=== PATIENT | male | born 2000 | race Caucasian/White ===

== ENCOUNTER 2018-10-29 12:50 | Emergency (ER) | payer SELFPAY ==
--- NOTE | 2018-10-29 13:51 | ER Document Report ---
ED Medical Screen (RME) - General Chief Complaint: Chest Pain Stated Complaint: CHEST PAIN Time Seen by Provider: 10/29/18 13:45 TRAVEL OUTSIDE OF THE [place] IN LAST 30 DAYS: No - HPI Notes: 10/29/18 13:49 Patient is a 17-year-old male with a history of tachycardia, mild cardiomyopathy with ejection fraction 55-60% who presents the emergency department complaining of substernal chest pain that radiates to his left arm that began this morning. Patient does take a beta-dante. He does report a dry cough over the past several days as well. Denies any prolonged immobilization, distance travel, recent surgery/trauma, personal cancer history, hormone use, smoking, or previous DVT/PE. Denies WOOTEN, fever, neck pain, Abd pain, or rash. I have treated and performed a rapid initial assessment of this patient. A comprehensive ED assessment and evaluation of the patient, analysis of test results and completion of medical decision making process will be conducted by additional ED providers. PHYSICAL EXAMINATION: GENERAL: Well-appearing, well-nourished and in no acute distress. A&Ox4. Answers questions appropriately. LUNGS: Breath sounds clear to auscultation bilaterally and equal. No wheezes rales or rhonchi. HEART: Regular rate and rhythm without murmurs, rubs, gallops. Extremities: No cyanosis, clubbing, or edema b/l. No lower extremity asymmetry. Chevy negative bilaterally. NEUROLOGICAL: Normal speech, normal gait. PSYCH: Normal mood, normal affect. - Related Data Allergies/Adverse Reactions: IV dye Allergy (Uncoded 10/29/18 12:52) Physical Exam - Vital signs Vitals: Temp Pulse Resp BP Pulse Ox 98.1 F 104 H 16 151/86 H 97 10/29/18 13:04 10/29/18 13:04 10/29/18 13:04 10/29/18 13:04 10/29/18 13:04 Course - Vital Signs Vital signs: Temp Pulse Resp BP Pulse Ox 98.1 F 104 H 16 151/86 H 97 10/29/18 13:04 10/29/18 13:04 10/29/18 13:04 10/29/18 13:04 10/29/18 13:04
[2018-10-29] MEDS ORDERED: PROPRANOLOL HCL 10 MG TABLET PO ONE (13:56)
[2018-10-29 14:29] LABS: ABSOLUTE EOSINOPHILS # (AUTO) 0.1 10^3/uL (0.0-0.6); ABSOLUTE LYMPHOCYTES (AUTO) 1.8 10^3/uL (0.5-4.7); ABSOLUTE MONOCYTES (AUTO) 0.8 10^3/uL (0.1-1.4); ABSOLUTE NEUT (AUTO) 4.6 10^3/uL (1.7-8.2); BASOPHILS % (AUTO) 0.6 % (0-2); HEMATOCRIT 44.5 % (37.9-51.0); HEMOGLOBIN 15.6 g/dL (13.5-17.0); LYMPHOCYTES % (AUTO) 24.2 % (13-45); MEAN CORPUSCULAR HEMOGLOBIN 28.7 pg (27.0-33.4); MEAN CORPUSCULAR VOLUME 82 fl (80-97); MONOCYTES % (AUTO) 10.5 % (3-13); PLATELET COUNT 262 10^3/uL (150-450); RED BLOOD COUNT 5.44 10^6/uL (4.35-5.55); RED CELL DISTRIBUTION WIDTH 13.5 % (11.5-14.0); SEGMENTED NEUTROPHILS % (AUTO) 63.7 % (42-78); TOTAL CELLS COUNTED % (AUTO) 100 %; WHITE BLOOD COUNT 7.3 10^3/uL (4.0-10.5)
[2018-10-29 14:39] LABS: ALANINE AMINOTRANSFERASE 50 U/L (10-40); ALBUMIN 4.2 g/dL (3.7-5.6); ALKALINE PHOSPHATASE 76 U/L (65-260); ANION GAP 8 (5-19); ASPARTATE AMINO TRANSFERASE 30 U/L (10-45); BILIRUBIN,DIRECT 0.3 mg/dL (0.0-0.4); BILIRUBIN,TOTAL 0.7 mg/dL (0.2-1.3); BLOOD UREA NITROGEN 13 mg/dL (7-20); CALCIUM 9.6 mg/dL (8.4-10.2); CARBON DIOXIDE 27 mmol/L (22-30); CHLORIDE 106 mmol/L (98-107); GLUCOSE 113 mg/dL (75-110); POTASSIUM 4.1 mmol/L (3.6-5.0); SODIUM 141.2 mmol/L (137-145); TOTAL PROTEIN 7.2 g/dL (6.3-8.2)
[2018-10-29 14:51] LABS: NT PRO BNP 13 pg/mL (<125)
[2018-10-29 15:02] LABS: TROPONIN I < 0.012 ng/mL
[2018-10-29] MEDS ORDERED: NORMAL SALINE 1000 ML 1,000 ML IV ONE (15:21)
[2018-10-29] MEDS ORDERED: CLONAZEPAM 1 MG TABLET PO ONE (15:22)
[2018-10-29] MEDS ORDERED: KETOROLAC TROMETHAMINE INJ/PF 30 MG/1 ML SDV IV ONE (15:23)
--- NOTE | 2018-10-29 15:25 | ER Document Report ---
ED Cardiac - General Chief Complaint: Chest Pain Stated Complaint: CHEST PAIN Time Seen by Provider: 10/29/18 13:45 Mode of Arrival: Ambulatory Information source: Patient Notes: Patient presents stating that he had around 8:00 this morning with palpitations. Patient states he does have a history of tachycardia and typically takes propanolol although he missed a dose today. Patient states that he is here [place]. Patient also reports he had a cough for the past 5 days. Patient does state that he has a history of chronic chest discomfort as well as chronic tachycardia. Patient became concerned today because he felt like the tachycardia was lasting too long. TRAVEL OUTSIDE OF THE [place] IN LAST 30 DAYS: No - HPI Patient complains to provider of: Chest pain, Palpitations. denies: Shortness of breath Is the pain a: Chronic problem Quality of pain: Pressure Pain level currently: 2 Chest pain precipitating factors: Coughing Cardiac risk factors: denies: Smoker Associated symptoms: Anxiety, Palpitations. denies: Abdominal pain, Nausea/vomiting, Shortness of breath Exacerbated by: Coughing Relieved by: Nothing Similar symptoms previously: Yes Recently seen / treated by doctor: No - Related Data Allergies/Adverse Reactions: IV dye Allergy (Uncoded 10/29/18 12:52) Past Medical History - General Information source: Patient - Social History Smoking Status: Never Smoker Frequency of alcohol use: None Drug Abuse: None Lives with: Family Family History: Reviewed & Not Pertinent Patient has suicidal ideation: No Patient has homicidal ideation: No - Past Medical History Cardiac Medical History: Reports: Other - Tachycardia Renal/ Medical History: Denies: Hx Peritoneal Dialysis Psychiatric Medical History: Reports: Hx Anxiety Surgical Hx: Negative Review of Systems - Review of Systems Constitutional: Recent illness - Cough for 5 days EENT: No symptoms reported. denies: Throat pain Cardiovascular: Chest pain, Palpitations Respiratory: Cough. denies: Short of breath Gastrointestinal: No symptoms reported. denies: Abdominal pain, Nausea, Vomiting Genitourinary: No symptoms reported Male Genitourinary: No symptoms reported Musculoskeletal: No symptoms reported. denies: Back pain, Leg swelling Skin: No symptoms reported Hematologic/Lymphatic: No symptoms reported Neurological/Psychological: No symptoms reported Physical Exam - Vital signs Vitals: Temp Pulse Resp BP Pulse Ox 98.1 F 104 H 16 151/86 H 97 10/29/18 13:04 10/29/18 13:04 10/29/18 13:04 10/29/18 13:04 10/29/18 13:04 - General General appearance: Appears well, Alert In distress: None - HEENT Head: Normocephalic, Atraumatic Eyes: Normal Conjunctiva: Normal Nasal: Normal Mouth/Lips: Normal Mucous membranes: Normal Neck: Normal, Supple. No: Lymphadenopathy - Respiratory Respiratory status: No respiratory distress Chest status: Pain with cough Breath sounds: Nonproductive cough. No: Rales, Rhonchi, Stridor, Wheezing Chest palpation: Normal - Cardiovascular Rhythm: Regular Heart sounds: S1 appreciated, S2 appreciated Murmur: No - Abdominal Inspection: Obese Distension: No distension Bowel sounds: Normal Tenderness: Nontender Organomegaly: No organomegaly - Back Back: Normal, Nontender - Extremities General upper extremity: Normal inspection, Nontender, Normal strength General lower extremity: Normal inspection, Nontender, Normal strength. No: Edema - Neurological Neuro grossly intact: Yes Cognition: Normal Hazard Coma Scale Eye Opening: Spontaneous Janay Coma Scale Verbal: Oriented Hazard Coma Scale Motor: Obeys Commands Hazard Coma Scale Total: 15 - Psychological Associated symptoms: Normal affect, Normal mood - Skin Skin Temperature: Warm Skin Moisture: Dry Skin Color: Normal Course - Re-evaluation Re-evalutation: 10/29/18 16:48 Patient's heart rate 99 with oxygen saturation of 100%. Patient states chest pain is improved at this time. Chest x-ray reviewed, no concern for pneumonia. Consulted with Dr. Dawson regarding patient presentation, she advises repeating troponin at this time. 10/29/18 18:00 No rise in delta troponin. Patient denies any dyspnea or palpitation at this time. Heart rate 90. Patient reports chest discomfort is improved at this time. The patient has atypical chest pain as the patient's chest pain is not s uggestive of pulmonary embolus, cardiac ischemia, aortic dissection, or other serious etiology. Given the extremely low risk of these diagnoses for the test in evaluation for these possibilities does not appear to be indicated at this time. Patient has been instructed to return if the symptoms worsen or change in any way. - Vital Signs Vital signs: Temp Pulse Resp BP Pulse Ox 97.2 F 90 16 130/72 H 100 10/29/18 18:21 10/29/18 18:21 10/29/18 18:21 10/29/18 18:21 10/29/18 18:21 - Laboratory Result Diagrams: 10/29/18 14:13 10/29/18 14:13 Laboratory results interpreted by me: 10/29/18 14:13 Glucose 113 H ALT 50 H 10/30/18 01:46 Labs- Entire Visit 10/29/18 10/29/18 10/29/18 14:13 14:13 14:13 WBC 7.3 RBC 5.44 Hgb 15.6 Hct 44.5 MCV 82 MCH 28.7 MCHC 35.0 RDW 13.5 Plt Count 262 Seg Neutrophils % 63.7 Lymphocytes % 24.2 Monocytes % 10.5 Eosinophils % 1.0 Basophils % 0.6 Absolute Neutrophils 4.6 Absolute Lymphocytes 1.8 Absolute Monocytes 0.8 Absolute Eosinophils 0.1 Absolute Basophils 0.0 Sodium 141.2 Potassium 4.1 Chloride 106 Carbon Dioxide 27 Anion Gap 8 BUN 13 Creatinine 1.06 Est GFR ( Amer) > 60 Est GFR (Non-Af Amer) > 60 Glucose 113 H Calcium 9.6 Total Bilirubin 0.7 Direct Bilirubin 0.3 Neonat Total Bilirubin Not Reportable Neonat Direct Bilirubin Not Reportable Neonat Indirect Bili Not Reportable AST 30 ALT 50 H Alkaline Phosphatase 76 Troponin I < 0.012 NT-Pro-B Natriuret Pep 13 Total Protein 7.2 Albumin 4.2 TSH 10/29/18 10/29/18 14:13 17:08 WBC RBC Hgb Hct MCV MCH MCHC RDW Plt Count Seg Neutrophils % Lymphocytes % Monocytes % Eosinophils % Basophils % Absolute Neutrophils Absolute Lymphocytes Absolute Monocytes Absolute Eosinophils Absolute Basophils Sodium Potassium Chloride Carbon Dioxide Anion Gap BUN Creatinine Est GFR ( Amer) Est GFR (Non-Af Amer) Glucose Calcium Total Bilirubin Direct Bilirubin Neonat Total Bilirubin Neonat Direct Bilirubin Neonat Indirect Bili AST ALT Alkaline Phosphatase Troponin I < 0.012 NT-Pro-B Natriuret Pep Total Protein Albumin TSH 2.01 - Diagnostic Test Radiology reviewed: Reports reviewed Discharge - Discharge Clinical Impression: Palpitations Chest pain Qualifiers: Chest pain type: unspecified Qualified Code(s): R07.9 - Chest pain, unspecified Condition: Stable Disposition: HOME, SELF-CARE Instructions: Chest Pain of Unclear Cause ([facility]), Palpitations (Irregular or Rapid Heartrate) ([facility]) Additional Instructions: Return immediately for any new or worsening symptoms Followup with your primary care provider, call tomorrow to make a followup appointment
--- NOTE | 2018-10-29 15:38 | EKG REPORT ---
SEVERITY:- BORDERLINE ECG - SINUS TACHYCARDIA PROBABLE LEFT ATRIAL ABNORMALITY : Confirmed by: Eduin Cueto MD 29-Oct-2018 15:37:46
--- NOTE | 2018-10-29 15:56 | RADIOLOGY REPORT (SQ) ---
EXAM DESCRIPTION: CHEST SINGLE VIEW COMPLETED DATE/TIME: 10/29/2018 3:44 pm REASON FOR STUDY: CP, cough COMPARISON: None. EXAM PARAMETERS: NUMBER OF VIEWS: One view. TECHNIQUE: Single frontal radiographic view of the chest acquired. RADIATION DOSE: NA LIMITATIONS: None. FINDINGS: LUNGS AND PLEURA: No opacities, masses or pneumothorax. No pleural effusion. MEDIASTINUM AND HILAR STRUCTURES: No masses. Contour normal. HEART AND VASCULAR STRUCTURES: Heart normal in size. Normal vasculature. BONES: No acute findings. HARDWARE: None in the chest. OTHER: No other significant finding. IMPRESSION: NO ACUTE RADIOGRAPHIC FINDING IN THE CHEST. TECHNICAL DOCUMENTATION: JOB ID: [id number] [id number] [employer]- All Rights Reserved Reading location - IP/workstation name: [facility]
[2018-10-29 19:47] VITALS: BP 130/72
== END 2018-10-29 18:37 | disposition home or self-care (01) ==
LOC: ER 12:50
DX: R00.2 Palpitations (principal); R07.9 Chest pain, unspecified
CPT/HCPCS: 93005; 99285; 96361; 96374; 36415; 84443; 85025; 80053; 84484; 83880; 71045; 93010; J1885; J3490; J7030